=== PATIENT | male | born 1960 ===

== ENCOUNTER 2016-11-28 09:01 | Emergency (ER) | payer MEDICAID ==
[2016-11-28 09:02] VITALS: BMI 20.9
[2016-11-28] MEDS ORDERED: Iohexol 240 (50 ml) PO STA (11:06)
[2016-11-28 11:08] LABS: BASO % 0.4 % (0.0-2.0); EOS # 0.3 K/uL (0.0-0.7); HEMOGLOBIN 13.2 g/dL (12.0-18.0); LYMPH # 0.8 K/uL (1.0-4.3); LYMPH % 12.9 % (20.0-40.0); MEAN CELL VOLUME 84.4 fL (80.0-94.0); MEAN CORPUSCULAR HEMOGLOBIN 27.8 pg (27.0-31.0); MEAN PLATELET VOLUME 8.6 fL (7.2-11.7); MONO # 0.4 K/uL (0.0-0.8); MONO % 5.7 % (0.0-10.0); NEUT # 4.7 K/uL (1.8-7.0); NRBC % 0.2 % (0.0-2.0); RBC 4.76 Mil/uL (4.40-5.90); RED CELL DISTRIBUTION WIDTH 14.4 % (11.5-14.5); WHITE BLOOD COUNT 6.2 K/uL (4.8-10.8)
[2016-11-28 11:14] LABS: PROTHROMBIN TIME 11.6 SECONDS (9.7-12.2)
[2016-11-28] MEDS ORDERED: Iohexol 240 (50 ml) ONE (11:34)
[2016-11-28 11:36] LABS: ALBUMIN 3.8 g/dL (3.5-5.0)
--- NOTE | 2016-11-28 11:38 | C.PDOC ---
History Of Present Illness 56 y/o male presents to ED with c/o PEG tube falling out approx 2 hours prior to arrival. Pt reports he has had a PEG tube for many years, most recent one was placed 08/04/16. He denies fever, abdominal pain, vomiting, discharge from site. Time Seen by Provider: 11/28/16 09:12 Chief Complaint (Nursing): GI Problem History Per: Patient History/Exam Limitations: no limitations Onset/Duration Of Symptoms: Hrs Current Symptoms Are (Timing): Still Present Severity: Mild Past Medical History Reviewed: Historical Data, Nursing Documentation, Vital Signs Vital Signs: Last Vital Signs Temp 97.6 F 11/28/16 12:30 Pulse 90 11/28/16 12:30 Resp 22 11/28/16 12:30 BP 105/55 L 11/28/16 12:30 Pulse Ox 97 11/28/16 12:35 - Medical History PMH: HTN, Hypercholesterolemia Surgical History: Coronary Stent - [facility] Procedures ANGIOPLASTY OF OTHER NON-CORONARY VESSEL(S) (11/05/13) CONTRAST AORTOGRAM (11/05/13) CONTRAST ARTERIOGRAM-LEG (11/05/13) INSEJ [id number] PERIPHERAL NON-CORONARY VES STENT(S) (11/05/13) INSEJ OF DRUG-ELUTING STENT(S) OF SUPERFICIAL FEMORAL ARTERY (11/05/13) INSERTION OF FOUR OR MORE VASCULAR STENTS (11/05/13) INTRODUCTION OF NUTRITIONAL INTO UP GI, VIA OPENING (05/22/16) PROCEDURE ON SINGLE VESSEL (11/04/13) PROCEDURE ON TWO VESSELS (11/05/13) TRANSFUSE NONAUT RED BLOOD CELLS IN PERIPH VEIN, PERC (05/22/16) VACCINATION NEC (11/04/13) Family History: States: No Known Family Hx - Social History Hx Alcohol Use: No Hx Substance Use: Yes - Immunization History Hx Tetanus Toxoid Vaccination: Yes Hx Influenza Vaccination: Yes Hx Pneumococcal Vaccination: Yes Review Of Systems Except As Marked, All Systems Reviewed And Found Negative. 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) Eye(s): bilateral: Normal Inspection Oral Mucosa: Moist Neck: Supple, Other (tracheostomy in place) Cardiovascular: Rhythm Regular Respiratory: Normal Breath Sounds, No Rales, No Rhonchi, No Wheezing Gastrointestinal/Abdominal: Normal Exam, Bowel Sounds, Soft, No Tenderness, Other (LUQ - <1.0 cm stoma, without erythema/discharge ) Back: Normal Inspection Extremity: Other (AKA R lower extremity ) Neurological/Psych: Oriented x3 ED Course And Treatment - Laboratory Results Result Diagrams: 11/28/16 11:00 11/28/16 11:00 O2 Sat by Pulse Oximetry: 97 (RA) Pulse Ox Interpretation: Normal - Other Rad ABDOMEN FLAT PLATE XR X-Ray: Viewed By Me, Read By Radiologist Interpretation: FINDINGS: BOWEL: A PEG tube insertion site projects over the gastric fundal level. Contrast is confined to the stomach. No extravasation suggested. No obstruction. No free air. BONES: Bilateral hip arthrosis. OTHER FINDINGS: Left iliac vascular stent. Epigastric metallic density. Watch , belt buckle or other extrinsic entity favored -intrinsic entity not excluded ; correlate clinically. Surrounding clips present. Possible short and of asked stent left L2-3 level -versus artifact than limited visualization. Arterial atherosclerotic vascular calcifications. IMPRESSION: Peg tube tip projects over gastric fundal level. No gross extravasation. No gastric or bowel obstruction. Endovascular stents ; arterial atherosclerotic vascular disease. Progress Note: Attempted insertion by me of insert 18 Swedish Gill catheter, then 16 Swedish PEG tube- unsuccessful. Inserted 12 Swedish coudet catheter, placement confirmed via abdominal Xray (omnipaque visualized inside stomach). Discussed patient with GI on-call. Patient offered admission/obs in order to be seen by GI and have PEG placed, howeverhe refused - stated he prefers to be discharged homw and follow up with GI as outpatient. Patient understands the need for follow up with GI within 1 week, and that he should return to Ed immediately if he has any concerning symptoms. Reevaluation Time: 12:15 Reassessment Condition: Improved - Physician Consult Information Physician Contacted: Adonay Tripathi (-) Outcome Of Conversation: Discussed patient with Dr. Sudeep Tripathi, if gill working and in place, patient can be discharged home and follow up with GI as outpatient. Disposition Counseled Patient/Family Regarding: Studies Performed, Diagnosis, Need For Followup - Disposition Referrals: Adonay Tripathi MD [Staff Provider] - Disposition: HOME/ ROUTINE Disposition Time: 12:15 Condition: STABLE Additional Instructions: YOU NEED TO FOLLOW UP WITH GI SPECIALIST WITHIN 1 WEEK FOR CHANGE OF TUBE RETURN TO ER IF YOU DEVELOP ANY CONCERNING SYMPTOMS Instructions: How to Use and Care for Your PEG Tube (ED) Print Language: TURKMEN - POA Present On Arrival: None - Clinical Impression Clinical Impression: PEG tube malfunction - Scribe Statement The provider has reviewed the documentation as recorded by the Lucinda Rico Provider Attestation: All medical record entries made by the Lucinda were at my direction and personally dictated by me. I have reviewed the chart and agree that the record accurately reflects my personal performance of the history, physical exam, medical decision making, and the department course for this patient. I have also personally directed, reviewed, and agree with the discharge instructions and disposition.
[2016-11-28 11:39] LABS: GFR AFRICAN-AMERICAN > 60; GFR NON-AFRICAN AMERICAN > 60
[2016-11-28 11:40] LABS: ALT/SGPT 40 U/L (21-72); AST/SGOT 69 U/L (17-59); BLOOD UREA NITROGEN 17 mg/dL (9-20); CALCIUM 9.6 mg/dl (8.6-10.4)
--- NOTE | 2016-11-28 12:13 | RAD ---
HISTORY: CONFIRM PEG PLACEMENT COMPARISON: No prior. FINDINGS: BOWEL: A PEG tube insertion site projects over the gastric fundal level. Contrast is confined to the stomach. No extravasation suggested. No obstruction. No free air. BONES: Bilateral hip arthrosis OTHER FINDINGS: Left iliac vascular stent. Epigastric metallic density. Watch, belt buckle or other extrinsic entity favored -intrinsic entity not excluded ; correlate clinically. Surrounding clips present. Possible short and of asked stent left L2-3 level -versus artifact than limited visualization. Arterial atherosclerotic vascular calcifications. IMPRESSION: Peg tube tip projects over gastric fundal level. No gross extravasation. No gastric or bowel obstruction. Endovascular stents ; arterial atherosclerotic vascular disease.
[2016-11-28 12:32] VITALS: BP 105/55; PULSE 90; RESP 22; TEMP 97.6
[2016-11-28 12:34] VITALS: O2SAT 97
== END 2016-11-28 12:31 | disposition home or self-care (01) ==
LOC: C.ER 09:01
DX: K94.23 Gastrostomy malfunction (principal)
CPT/HCPCS: 74000; 80053; 85025; 85610; 85730; 99284; Q9966

== ENCOUNTER 2016-12-20 09:24 | Day surgery (SDC) | payer MEDICAID ==
[2016-12-20 09:46] VITALS: BMI 14.7
[2016-12-20] MEDS ORDERED: ceFAZolin IV 1 gm in Dextrose 1 GM/50 ML BAG IVPB STA ×2 (10:17→10:51)
--- NOTE | 2016-12-20 13:40 | CP.SDSHP ---
Same Day Surgery H & P - History Proposed Procedure: PEG Pre-Op Diagnosis: dysfunctional PEG - Previous Medical/Surgical History Cardiac: Hypertension, ASHD/CAD, Other (Hyperlipidemia. ENT malignancy) Previous Surgical History: ENT surgery. PEG Tracheostomy - Allergies Allergies: Allergies No Known Allergies Allergy (Verified 11/28/16 09:06) - Current Medications Current Medications: reviewed, per reconciliation - Physical Exam General Appearance: wdwn nad. Deformed mandible from prior surgery Vital Signs: Vital Signs 12/20/16 09:55 Temperature 97.3 F L Pulse Rate 90 Respiratory 20 Rate Blood Pressure 108/61 O2 Sat by Pulse 99 Oximetry Mental Status: Alert & Oriented x3 Heart: WNL Lungs: WNL GI: Other (Mills catheter in place of gastrostomy) - {Optional Preform as Required} Abdomen: WNL - Impression Impression: Dysfunctional Gastrostomy Pt. Evaluated Today:Candidate for Anesthesia & Procedure: Yes - Date & Time Date: 12/20/16 Time: 13:40 Short Stay Discharge - Short Stay Discharge Admitting Diagnosis/Reason for Visit: DYSPHAGIA Disposition: HOME/ ROUTINE
[2016-12-20] MEDS ORDERED: Propofol 10 mg/ml Inj (20 ML) ONE (14:14)
[2016-12-20] MEDS ORDERED: Lactated Ringer's 1,000 ML IV SCH (14:15)
[2016-12-20 15:36] VITALS: TEMP 97.8
[2016-12-20 15:46] VITALS: BP 128/76; PULSE 66; RESP 17; O2SAT 99
== END 2016-12-20 15:20 | disposition home or self-care (01) ==
LOC: C.ENDO 09:24
PROVIDERS: ATTEND Internal Medicine Gastroenterology
DX: K94.23 Gastrostomy malfunction (principal); R13.10 Dysphagia, unspecified; E78.5 Hyperlipidemia, unspecified; I10 Essential (primary) hypertension
CPT/HCPCS: 43246; J0690; J2704; J7120